=== PATIENT | male | born 2000 | race Two or more races ===

== ENCOUNTER 2020-09-24 14:27 | Emergency (ER) | payer SELFPAY ==
[~2020-09-24] VITALS: Ht 177.8 cm; Wt 63.5 kg
[2020-09-24] MEDS ORDERED: IBUPROFEN600 M1 ORAL (14:54)
--- NOTE | 2020-09-24 14:55 | NUR ---
ER DISCHARGE NOTE: Patient is cleared to be discharged per ERMD, pt is aox4, on room air, with stable vital signs. pt was given dc and prescription instructions, pt was able to verbalize understanding, pt id band removed. pt is able to ambulate with steady gait. pt took all belongings.
[2020-09-24 14:59] VITALS: BP 116/77
--- NOTE | 2020-09-24 15:00 | Emergency Room Report ---
History of Present Illness General Chief Complaint: Headache Source: Patient Present Illness HPI Disclaimer: Please note that this report is being documented using [employer] technology. This can lead to erroneous entry secondary to incorrect interpretation by the dictating instrument. HPI: 20-year-old male presents for evaluation of headache. 2 days ago he accidentally hit the top of his head against an open cabinet in his kitchen. There is no fall to the ground but he felt slightly dizzy for a few moments. Reports persistent headache and aching over the top of his head as well as intermittent difficulty focusing his vision. Denies loss of vision, seizure ac tivity, loss of conscious. Does not take blood thinners. No prior history of head injury. Denies neck or back pain or other injury sustained. Eating and drinking at baseline. Denies fever, chills, cough, shortness of breath, chest pain. Recently tested for COVID-19 returned negative. PMH: Denies PSH: Denies Allergies: Denies Social Hx: Denies Allergies: Coded Allergies: No Known Allergies (Unverified , 09/24/20) COVID-19 Screening Contact w/high risk pt: Yes Experienced COVID-19 symptoms?: No COVID-19 Testing performed [employer]: Yes COVID-19 Screening: Negative COVID-19 COVID-19 Testing Source: sep 14 Nursing Documentation-PMH Past Medical History: No Stated History Review of Systems All Other Systems: negative except mentioned in HPI Physical Exam Vital Signs Date Time Temp Pulse Resp B/P (MAP) Pulse Ox O2 Delivery O2 Flow Rate FiO2 09/24/20 14:38 98.4 70 18 116/77 (90) 96 Room Air General: Awake and alert, no acute distress HEENT: NC/AT. No palpable fractures. EOMI. PERRLA. Visual carlton are full. No nystagmus. Facial expressions are symmetrical. No facial droop. Tympanic membranes are pearly travis. No hemotympanum. No rhodes sign. Resp: Normal work of breathing. No cough Skin: Intact. No abrasions, laceration or rash over the exposed skin MSK: Normal tone and bulk. Moving all extremities. No obvious deformity. Neuro: Awake and alert. Mentating appropriately. Facial expression symmetrical. No dysarthria. The patient has intact speech with good repetition, comprehension. Fund of knowledge is full. Medical Decision Making Diagnostic Impression: Primary Impression: Headache ER Course 30-year-old male presents for evaluation of 2 days headache after a minor head injury. Neuro intact. No findings of significant head injury. Does not meet criteria for imaging. Likely minor concussion possible migraine. He has been using Tylenol intermittently. Will put on a more regular Tylenol regimen and add ibuprofen. He is otherwise well-appearing do not believe he requires emergent labs or imaging at this time. Discussed limiting screen time, nausea participate in sports or any other activity that could result in repeat head injury and to follow-up with PMD. Also discussed return precautions. He understands agrees with treatment plan. Last Vital Signs Date Time Temp Pulse Resp B/P (MAP) Pulse Ox O2 Delivery O2 Flow Rate FiO2 09/24/20 14:38 98.4 70 18 116/77 (90) 96 Room Air Disposition: HOME, SELF-CARE Condition: Stable Scripts Ibuprofen* (MOTRIN*) 600 Mg Tablet 600 MG ORAL Q6H PRN for For Pain, #30 TAB 0 Refills Prov: Kemar Centeno MD 09/24/20 Referrals: [facility]. [facility] Patient Instructions: Concussion, Adult, Migraine Headache Additional Instructions: Please follow-up with your primary care doctor in the next 1 to 3 days to discuss this emergency department visit and for reevaluation. Refrain from participating in any contact sports, climbing on high ladders, engaging in any activity that could result in repeat head injury until you are cleared to return to these activities by a physician. Limit screen time, TV time to avoid worsening headaches. Get plenty of sleep, eat regular meals, maintain adequate levels of hydration. If you have any new or worsening symptoms please return to the emergency department for reevaluation. Please note that this report is being documented using [employer] technology. This can lead to erroneous entry secondary to incorrect interpretation by the [employer] instrument. Kemar Centeno MD Sep 24, 2020 15:00
== END 2020-09-24 15:00 | disposition home or self-care (01) ==
LOC: EMR 14:58
DX: R51.9 Headache, unspecified (principal)
CPT/HCPCS: 99282